=== PATIENT | female | born 1935 | race Two or more races ===

== ENCOUNTER 2020-05-19 14:13 | Outpatient (CLI) | payer OTHER, SELFPAY ==
--- NOTE | ~2020-05-19 | DEXA_ITS ---
Bone Density Report Name: Ousmane Dodd Age: 84 Sex: Female Ethnicity: Date of : 1935 Indication: postmenopausal osteoporosis; height loss; Referring Provider: FRANCO HOUSTON Study: Bone densitometry was performed. Exam Date: May 19, 2020 Accession number: [id number] Bone Density: Region BMD T-score Z-score Classification AP Spine (L1-L4) 0.509 -4.9 -2.1 Osteoporosis Femoral Neck (Left) 0.530 -2.9 -0.4 Osteoporosis Total Hip (Left) 0.673 -2.2 0.0 Osteopenia Total Hip Bilateral Avg 0.658 -2.4 -0.1 Osteopenia Femoral Neck (Right) 0.514 -3.0 -0.6 Osteoporosis Total Hip (Right) 0.643 -2.5 -0.2 Osteoporosis World Health Organization criteria for BMD impression classify patients as: Normal (T-score at or above -1.0), Osteopenia (T-score between -1.0 and -2.5), or Osteoporosis (T-score at or below -2.5). 10-year Fracture Risk: FRAX not reported because: Some T-score for Spine Total or Hip Total or Femoral Neck at or below -2.5 Previous Exams: Region Exam Age BMD T-score BMD Change BMD Change Date g/cm2 vs Baseline vs Previous AP Spine(L1-L4) 05/19/2020 84 0.509 -4.9 -0.065(-11.3%) -0.065(-11.3%) 01/15/2014 78 0.574 -4.3 Total Hip(Left) 05/19/2020 84 0.673 -2.2 -0.052(-7.2%)* -0.052(-7.2%)* 01/15/2014 78 0.725 -1.8 Total Hip(Right) 05/19/2020 84 0.643 -2.5 -0.116(-15.3%) -0.116(-15.3%) 01/15/2014 78 0.759 -1.5 *Denotes significance at 95% confidence level, LSC for AP Spine = 0.022 g/cm2, LSC for Total Hip = 0.027 g/cm2 Clinical Information Provided by Patient: Patient maximum height was 63 No regular weight bearing exercise Drinks caffeinated beverages Onset of menses at age 14 Number of children 6 Impression: The patient has osteoporosis, based on the Total Spine T-score. The BMD for the Total Hip(Left) decreased, changing by -7.2% since the last DXA exam. The BMD for the Total Hip(Right) decreased, changing by -15.3% since the last DXA exam. Discussion: HIGH RISK OF FRACTURE. BONE DENSITY IS UNDESIRABLY LOW AT ONE OR MORE SKELETAL SITES, CONSISTENT WITH OSTEOPOROSIS. ALSO, BONE DENSITY IS LOWER THAN EXPECTED FOR AGE AND SEX AT ONE OR MORE SKELETAL SITES; RECOMMEND A DILIGENT SEARCH FOR SECONDARY CAUSES OF BONE LOSS. This patient's lowest T-score meets the World Health Organization's (WHO) criteria for osteoporosis at one or more sites (T-score -2.5 or below). In untreated patients, the risk of osteoporotic fracture incre
--- NOTE | ~2020-05-19 | XR_ITS ---
XR chest 2V 05/19/2020 15:00 Indication: Hypertension. Dementia. Procedure: 2 view chest Comparison: 06/20/2017 Findings: Heart size normal. There is right apical parenchymal scarring unchanged. There are new nodu lar densities left midlung. No focal pneumonia, edema, pleural effusion or pneumothorax. Stable cardi omediastinal silhouette. Impression: 1: No acute cardiopulmonary disease. 2: New nodular densities left mid thorax. Follow-up CT chest recommended. Reviewed, dictated and finalized at location A. Impression: 1: No acute cardiopulmonary disease. 2: New nodular densities left mid thorax. Follow-up CT chest recommended.
[2020-05-19 15:44] LABS: Hematocrit 33.4 % (37.0-47.0); Hemoglobin 10.9 g/dL (12.0-15.0); Mean Corpuscular HGB Conc 32.6 g/dl (32-36); Mean Corpuscular Hemoglobin 28.5 pg (26-34); Mean Corpuscular Volume 87.4 fl (80-100); Mean Platelet Volume 10.2 fl (7.4-10.4); Platelet Count Result 299 k/mm3 (150-375); Red Blood Count 3.82 M/mm3 (4.2-5.4); Red Cell Distribution Width 12.4 % (11.5-14.5)
[2020-05-19 16:01] LABS: Alanine Aminotransferase 19 U/L (4-35); Albumin Level 3.9 g/dL (3.5-5.1); Alkaline Phosphatase 65 U/L (38-126); Aspartate Amino Transferase 34 U/L (14-36); Bilirubin,Total 0.5 mg/dL (0.2-1.3); Blood Urea Nitrogen 18 mg/dL (7-17); Calcium 9.5 mg/dL (8.4-10.2); Carbon Dioxide 32 mmol/L (22-30); Chloride 101 mmol/L (98-107); Estimated Glomerular Filt Rate > 60; Glucose 99 mg/dL (65-105); Sodium 138 mmol/L (137-145)
[2020-05-22 07:59] LABS: Methylmalonic Acid 1510 nmol/L (87-318)
== END 2020-05-19 14:14 | disposition home or self-care (01) ==
LOC: ANHIMG 14:22
PROVIDERS: PCP Internal Medicine; Visit Provider Internal Medicine
DX: F03.90 Unspecified dementia, unspecified severity, without behavioral disturbance, psychotic disturbance, mood disturbance, and anxiety (principal); Z78.0 Asymptomatic menopausal state; R91.8 Other nonspecific abnormal finding of lung field; M85.89 Other specified disorders of bone density and structure, multiple sites; M81.0 Age-related osteoporosis without current pathological fracture
CPT/HCPCS: 36415; 71046; 77080; 80053; 82607; 83921; 85027

== ENCOUNTER 2020-06-11 13:00 | Outpatient (CLI) | payer OTHER, SELFPAY ==
--- NOTE | ~2020-06-11 | CT_ITS ---
EXAMINATION: CT brain wo con EXAM DATE: 06/11/2020 13:49 INDICATION: Dementia. TECHNIQUE: Spiral CT of the head was performed without contrast. Axial, coronal and sagittal images were reviewed. The dose-length product (DLP) for this examination was 605.33 mGy-cm. The exposure w as tailored according to patient size, and iterative reconstruction (ASIR) was used as additional dos e reduction technique. Comparison is made to prior examination from 02/04/2014. FINDINGS: There is no acute intraparenchymal hemorrhage. No evidence of intraparenchymal brain mass lesion. No evidence of acute infarction. Please note that initial head CT has limited sensitivity f or small or acute infarctions. There is moderate periventricular and subcortical hypodensity, nonspec ific but probably related to small vessel ischemic disease. There is moderate prominence of the sul ci and ventricles related to cerebral atrophy. There is intracranial carotid arteriosclerosis. The re are no extra-axial collections. There is no mass effect or midline shift. Patient has had bilate ral ocular lens surgery. Vertebral basilar ectasia. Soft tissue is unremarkable. The visualized sinu ses and mastoid air cells are well aerated. IMPRESSION: 1. No acute intracranial findings. 2. Chronic age related findings. Reviewed, dictated and finalized at location B.
== END 2020-06-11 13:01 | disposition home or self-care (01) ==
LOC: ANHIMG 13:04
PROVIDERS: PCP Internal Medicine; Visit Provider Internal Medicine
DX: Z78.0 Asymptomatic menopausal state (principal); F03.90 Unspecified dementia, unspecified severity, without behavioral disturbance, psychotic disturbance, mood disturbance, and anxiety
CPT/HCPCS: 70450

== ENCOUNTER 2021-06-12 12:39 | Emergency (ER) | payer OTHER, SELFPAY ==
[2021-06-12] VITALS (13 sets, daily range): BP systolic 126–180; BP diastolic 77–106; PULSE 68–77; RESP 15–22; O2SAT 95–99
--- NOTE | ~2021-06-12 | XR_ITS ---
XR chest 2V DATE: 06/12/2021 13:00 INDICATION: Dyspnea. Shortness of breath. TECHNIQUE: PA and lateral views COMPARISON: 05/19/2020 2 view chest FINDINGS: Bilateral hyperinflation. No pulmonary infiltrate or consolidation, pleural effusion or pul monary vascular congestion or pneumothorax. Mild stable opacity overlying right apical area and 2019. Cardiomegaly. There is aortic calcification, ectasia and unfolding. No hilar or mediastinal enlargeme nt. Diffuse osteopenia. IMPRESSION: Cardiomegaly, aortic atherosclerosis Bilateral hyperinflation; no active pulmonary disease Reviewed, dictated and finalized at location A.
--- NOTE | ~2021-06-12 | CT_ITS ---
EXAMINATION: CTA chest PE protocol DATE: 06/12/2021 16:17 INDICATION: Shortness of breath. TECHNIQUE: Computed tomography angiography (CTA) of the chest was performed with 100 mL Omnipaque-350 intravenous contrast timed to evaluate the pulmonary arteries. Coronal maximum intensity projection 3D-reconstructions were created by the technologist. Automated exposure control and iterative reconst ruction technique were employed. The dose-length product was 154.02 mGy-cm. COMPARISON: Chest CT 12/01/2015 FINDINGS: There is a 2.1 x 1.3 cm part solid nodule in right lung upper lobe with 8 mm solid componen t, stable from 11/30/2015, likely benign. There is mild emphysema. There is mild atelectasis bilaterall y. There is a cluster of nodules in superior segment left lower lobe with the largest nodule measurin g 7 mm. No pleural effusion. The heart size is normal. No pericardial effusion. There is no pulmonary embolus. There is a moderate-sized sliding hiatal hernia. There is a healing fracture of right seven th rib. There is mild chronic height loss of multiple thoracic vertebral bodies. There is severe thor acic spondylosis. IMPRESSION: 1. No pulmonary embolus. 2. Cluster of nodules in superior segment left lower lobe, probably benign infection. Noncontrast low -dose chest CT is recommended in 6 months. 3. Mild emphysema. 4. Moderate-sized sliding hiatal hernia. Reviewed, dictated and finalized at location A. IMPRESSION: 1. No pulmonary embolus. 2. Cluster of nodules in superior segment left lower lobe, probably benign infe ction. Noncontrast low-dose chest CT is recommended in 6 months. 3. Mild emphysema. 4. Moderate-sized sliding hiatal hernia.
--- NOTE | 2021-06-12 12:40 | ECG_ITS ---
Measurements Intervals [place] Rate: 78 P: 55 [place]: 192 QRS: -74 QRSD: 154 T: 63 QT: 409 QTc: 468 Interpretive Statements SINUS RHYTHM POSSIBLE LEFT ATRIAL ENLARGEMENT LEFT BUNDLE BRANCH BLOCK BASELINE ARTIFACT- I, II, AVR, AVL, AVF, V1-V2 ABNORMAL ECG Electronically Signed On 06-12-2021 13:23:05 CDT by Elder Hoffman D.O.
[2021-06-12 13:15] LABS: Basophils Absolute Auto 0.1 K/mm3 (0.0-0.1); Basophils Percent Auto 0.9 % (0.2-1.2); Eosinophils Absolute Auto 0.1 K/mm3 (0-0.3); Eosinophils Percent Auto 1.8 % (0-4.4); Hematocrit 38.9 % (37.0-47.0); Hemoglobin 12.4 g/dL (12.0-15.0); Immature Granulocyte Absolute 0.01 K/mm3 (0.00-0.031); Immature Granulocyte Percent A 0.2 % (0-0.5); Lymphocytes Absolute Auto 0.61 K/mm3 (0.9-3.2); Lymphocytes Percent Auto 11.2 % (18.3-44.2); Mean Corpuscular HGB Conc 31.9 g/dl (32-36); Mean Corpuscular Hemoglobin 28.2 pg (26-34); Mean Corpuscular Volume 88.6 fl (80-100); Mean Platelet Volume 9.6 fl (7.4-10.4); Monocytes Absolute Auto 0.8 K/mm3 (0.1-0.6); Monocytes Percent Auto 14.5 % (2.6-8.5); Neutrophils Absolute Auto 3.9 K/mm3 (1.3-6.7); Neutrophils Percent Auto 71.4 % (45.5-73.1); Platelet Count Result 344 k/mm3 (150-375); Red Blood Count 4.39 M/mm3 (4.2-5.4); White Blood Count 5.5 K/mm3 (4.5-10.0)
[2021-06-12 13:22] LABS: Anion Gap 6 mmol/L (8-16); Blood Urea Nitrogen 17 mg/dL (7-17); Calcium 9.8 mg/dL (8.4-10.2); Carbon Dioxide 31 mmol/L (22-30); Chloride 93 mmol/L (98-107); Estimated CRCL calculation 37 ml/min; Estimated Glomerular Filt Rate > 60; Glucose 147 mg/dL (65-110); Potassium 3.7 mmol/L (3.4-5.0); Sodium 130 mmol/L (137-145)
--- NOTE | 2021-06-12 14:54 | ED.SOB ---
HPI - SOB/Dyspnea General Chief Complaint: Shortness of Breath/Dyspnea Stated Complaint: difficulty breathing Time Seen by Provider: 06/12/21 14:32 Source: patient, family and RN notes reviewed Mode of arrival: ambulatory Limitations: no limitations History of Present Illness HPI Narrative: This is an 85 year old female with history of hypertension who presents for evaluation of shortness of breath. Patient has been feeling short of breath since . She is only able to walk a short distance before she gets winded. Patient denies any other complaints. Patient denies chest pain, cough, abdominal pain, back pain, leg swelling, wheezing or fever. Her daughter states patient does not want to be admitted to hospital and she has never had to be admitted before. Related Data Home Medications Medication Instructions Recorded Confirmed carvedilol 12.5 mg PO DAILY 06/12/21 06/12/21 cyanocobalamin (vitamin B-12) 1,000 mcg PO DAILY 06/12/21 06/12/21 losartan-hydrochlorothiazide 1 tablet PO DAILY 06/12/21 06/12/21 Allergies Allergy/AdvReac Type Severity Reaction Status Date / Time No Known Allergies Allergy Unverified 06/12/21 14:00 Review of Systems Review of Systems: All systems reviewed & are unremarkable except as noted in HPI and below PMFSH Past Medical History Medical History (Updated 06/12/21 @ 17:44 by Kanika Martinez MD) Hypertension Social History Social History (Updated 06/12/21 @ 15:06 by Kanika Martinez MD) Smoking status: Never smoker Gender identity (if verbalized by the patient): Female Exam Const: General: alert Nutritional Appearance: thin Orientation/consciousness: patient oriented x3 Eyes: EOM: EOMs intact bilaterally Chest: Chest palpation & inspection: normal inspection of the chest Resp: Effort & Inspection: normal respiratory effort and no retractions Auscultation: clear to auscultation bilaterally Cardio: Rate: regular rate Rhythm: regular rhythm Heart sounds: no murmurs GI: GI Palp: Yes Soft to palpation, No Tenderness to palpation present (GI) and No Guarding due to palpation present (GI) Auscultation: normal bowel sounds Skin: General skin exam: normal color Neuro: General: patient oriented x3, moves all extremities and CN's II-XI intact bilaterally Extrem: General: normal to inspection and no pedal edema Psych: Mental Status: mental status grossly normal Affect: normal affect Course Reevaluation(s) Reevaluation #1: I spoke with patient and daugther. No acute findings for dyspnea. PAtient does not want to stay . I discussed with daughter that patient's sodium is low due to her taking hydrochlorothiazide. Date: 06/12/21 Time: 17:27 Vital Signs Vital signs: Vital Signs Pulse Rate 74 06/12/21 13:57 Respiratory Rate 19 06/12/21 13:57 Blood Pressure 161/96 H 06/12/21 13:57 Pulse Oximetry 97 06/12/21 13:57 Pulse Rate 77 06/12/21 18:25 Respiratory Rate 22 H 06/12/21 18:25 Blood Pressure 160/97 H 06/12/21 18:25 Pulse Oximetry 99 06/12/21 18:25 MDM - SOB/Dyspnea Lab Data Attestation: I reviewed the patient's lab results. Result diagrams: 06/12/21 12:54 06/12/21 12:54 Labs: Lab Results 06/12/21 06/12/21 06/12/21 Range/Units 12:53 12:53 12:54 WBC 5.5 (4.5-10.0) K/mm3 RBC 4.39 (4.2-5.4) M/mm3 Hgb 12.4 (12.0-15.0) g/dL Hct 38.9 (37.0-47.0) % MCV 88.6 (80-100) fl MCH 28.2 (26-34) pg MCHC 31.9 L (32-36) g/dl RDW 12.0 (11.5-14.5) % Plt Count 344 (150-375) k/mm3 MPV 9.6 (7.4-10.4) fl Immature Gran % (Auto) 0.2 (0-0.5) % Neut % (Auto) 71.4 (45.5-73.1) % Lymph % (Auto) 11.2 L (18.3-44.2) % [place] % (Auto) 14.5 H (2.6-8.5) % Eos % (Auto) 1.8 (0-4.4) % Baso % (Auto) 0.9 (0.2-1.2) % Lymph # (Auto) 0.61 L (0.9-3.2) K/mm3 [place] # (Auto) 0.8 H (0.1-0.6) K/mm3 Eos # (Auto) 0.1 (0-0.3) K/mm3 Baso # (Auto
[2021-06-12 15:23] LABS: Prothrombin Time 12.7 Seconds (11.1-14.7)
[2021-06-12 15:26] LABS: D Dimer 0.68 ug/mL (<0.48)
[2021-06-12 15:31] LABS: NT Pro B Type Natriuretic Pept 403 pg/mL (5-100); Troponin I < 0.012 ng/mL (0.000-0.034)
[2021-06-12] MEDS: SODIUM CHLORIDE 0.9% IV 500 ML 999 ML IV CONT (17:05)
== END 2021-06-12 18:42 | disposition home or self-care (01) ==
PROVIDERS: Emergency Medicine; Emergency Provider General Practice; PCP Internal Medicine
DX: R06.00 Dyspnea, unspecified (principal); E87.1 Hypo-osmolality and hyponatremia; I10 Essential (primary) hypertension
CPT/HCPCS: 36415; 71046; 71275; 80048; 83880; 84484; 85025; 85380; 85610; 85730; 93005; 96360; 99284; J7040; Q9967

== ENCOUNTER 2022-05-05 16:01 | Emergency (ER) | payer OTHER, SELFPAY ==
--- NOTE | ~2022-05-05 | XR_ITS ---
XR hip RT min 2V 05/05/2022 17:55 Indication: Right hip pain Procedure: 2 views right hip Comparison: No prior studies for comparison. Findings: Mild osteoarthritis of the right hip. Osteopenia. There is mild osteitis pubis. No acute fr acture or traumatic malalignment. Sacral foramen are symmetric. Impression: 1: No acute fracture. Reviewed, dictated and finalized at location A. Impression: 1: No acute fracture.
[2022-05-05 16:29] VITALS: BP 133/86; PULSE 79; RESP 16; TEMP 36.2; O2SAT 100
--- NOTE | 2022-05-05 17:13 | ED.BACK ---
HPI - Back Pain/Injury General Chief Complaint: Back Pain/Injury <YOAV Valladares Last Filed: 05/05/22 21:09> Stated Complaint: right leg pain <YOAV Valladares Last Filed: 05/05/22 21:09> Time Seen by Provider: 05/05/22 17:02 <Marielle Caputo PA-C - Last Filed: 05/05/22 21:09> History of Present Illness HPI Narrative: Patient is an 86-year-old female here with her daughter who serves as the supervisory cbp officer for evaluation of atraumatic right hip pain for the past 2 days. Patient states that the pain has developed gradually, she was walking yesterday, but now states it is difficult to walk today, which prompted her ED evaluation. She states the pain remains in her right glute/hip area and does not radiate. She has tried ibuprofen without much relief. Denies any urinary symptoms, retention of bowel or bladder, saddle anesthesia, paresthesias down her leg, IVDU, fevers, weight loss. <YOAV Valladares Last Filed: 05/05/22 21:09> Related Data Home Medications: Home Medications Medication Instructions Recorded Confirmed carvedilol 12.5 mg tablet 12.5 mg PO DAILY 06/12/21 06/12/21 cyanocobalamin (vitamin B-12) 1,000 mcg PO DAILY 06/12/21 06/12/21 1,000 mcg tablet losartan 50 mg-hydrochlorothiazide 1 tablet PO DAILY 06/12/21 06/12/21 12.5 mg tablet <YOAV Valladares Last Filed: 05/05/22 21:09> Allergies/Adverse Reactions: Allergies Allergy/AdvReac Type Severity Reaction Status Date / Time No Known Allergies Allergy Verified 05/05/22 17:29 <YOAV Valladares Last Filed: 05/05/22 21:09> Review of Systems Review of Systems: Gen: Denies fevers or chills Eyes: Denies eye pain or visual change ENT: Denies congestion Respiratory: Denies shortness of breath or cough CV: Denies chest pain or palpitations GI: Denies abdominal pain nausea, emesis or diarrhea : denies burning, urgency, frequency or hematuria Musculoskeletal: Reports right hip pain. Neuro: Denies numbness, tingling, weakness or focal weakness Skin: Denies rash Except as documented, all other systems reviewed and negative <Marielle Caputo PA-C - Last Filed: 05/05/22 21:09> [facility] Past Medical History Medical History: Medical History Hypertension <Marielle Caputo PA-C - Last Filed: 05/05/22 21:09> Social History Social History: Social History (Updated 06/12/21 @ 15:06 by Kanika Martinez MD) Smoking status: Never smoker Gender identity (if verbalized by the patient): Female <Marielle Caputo PA-C - Last Filed: 05/05/22 21:09> Exam Narrative: Gen: Thin, alert, oriented, no acute distress Eyes: EOMI, no icterus Pulm: Respirations even and unlabored, symmetric thorax expansion, no audible stridor or visible cyanosis CV: 2+ DP and PT pulses bilaterally. GI: No distension, no voluntary/involuntary guarding Neuro: AOx4, moves all extremities without apparent difficulty or weakness, follows commands MSK: No bony tenderness to palpation along C, T, or L-spine. No bony tenderness along hip bone or pelvis. Straight leg raise negative bilaterally. Full range of motion in bilateral hips without pain. Skin: No jaundice, no visible bruising, rashes, lesions or wounds on exposed skin Psych: Normal mood/affect, insight/judgement good, adequate fund of knowledge, recent/remote memory intact <Marielle Caputo PA-C - Last Filed: 05/05/22 21:09> Course HARVEST CREW SUPERVISOR/PA Physician Supervision I saw and evaluated the patient. Discussed the patient and plan with AMIRAH Caputo and agree with the findings and plan as documented. <Robin Silva MD - Last Filed: 05/06/22 23:58> Vital Signs Vital signs: Vital Signs Temperature 97.2 F L 05/05/22 16:29 Pulse Rate 79 05/05/22 16:29 Respiratory Rate 16 05/05/22 16:29 Blood Pressure 133/86 05/05/22 1
[2022-05-05] MEDS: LIDOCAINE 5% PATCH 1 PATCH TRANSDERM (17:28)
[2022-05-05] MEDS: ACETAMINOPHEN 325 MG TABLET 650 MG PO (17:28)
== END 2022-05-05 19:00 | disposition home or self-care (01) ==
PROVIDERS: Emergency Provider Preventive Medicine Aerospace Medicine; PCP Internal Medicine
DX: M25.551 Pain in right hip (principal); I10 Essential (primary) hypertension
CPT/HCPCS: 73502; 99283; A9270

== ENCOUNTER 2022-10-25 14:30 | Emergency (ER) | payer OTHER, SELFPAY ==
[2022-10-25] VITALS (20 sets, daily range): BP systolic 139–188; BP diastolic 58–101; PULSE 70–85; RESP 14–22; TEMP 36.4; O2SAT 93–100
--- NOTE | ~2022-10-25 | CT_ITS ---
EXAMINATION: CTA chest PE protocol DATE: 10/25/2022 19:50 INDICATION: dyspnea TECHNIQUE: Computed tomography angiography (CTA) of the chest was performed with 100 mL Omnipaque-350 intravenous contrast timed to evaluate the pulmonary arteries. Coronal maximum intensity projection 3D-reconstructions were created by the technologist. The dose-length product (DLP) was 127.91 mGy-cm. Automated exposure control and iterative reconstruction technique were employed. COMPARISON: 06/12/2021. FINDINGS: Lung parenchyma and airways: Grossly unchanged 1.4 cm subsolid left upper lobe nodule, demonstrating long-term stability. 1.3 cm old left lower lobe cavitary lesion, slightly increased in size. Associat ed lobular soft tissue component has significantly increased now measuring 0.7 x 2.1 cm. Stable perip heral right lower lobe scar. Emphysematous change. Pleura: Small right pleural effusion. Thoracic inlet, axillae and chest wall: Unremarkable. Thoracic aorta: Ascending aortic ectasia. Moderate arch calcification. Mediastinum: Large hiatal hernia. Dilated central pulmonary arteries as can be seen with pulmonary ar terial hypertension. Heart and pericardium: Aortic valve and mitral calcification. Cardiomegaly.. Coronary artery calcifications: Absent. Upper abdomen: No significant finding. Bones: No acute osseous finding. Pulmonary arteries: Study quality: Adequate. No pulmonary emboli detected. IMPRESSION: No CT evidence of acute pulmonary embolus. Solid and cavitary mass in the superior segment, left lowe r lobe, demonstrating interval growth, which may represent chronic infectious or malignant etiology. Consider referral for PET/CT or biopsy for further evaluation. Reviewed, dictated and finalized at location K. ORMANCE IMPROVEMENT MANAGER IMPRESSION: No CT evidence of acute pulmonary embolus. Solid and cavitary mass in the super ior segment, left lower lobe, demonstrating interval growth, which may represen t chronic infectious or malignant etiology. Consider referral for PET/CT or bio psy for further evaluation.
--- NOTE | ~2022-10-25 | XR_ITS ---
XR chest 2V DATE: 10/25/2022 15:41 INDICATION: Shortness of breath TECHNIQUE: PA and lateral views COMPARISON: 06/12/2021 CT pulmonary scan FINDINGS: Approximately 11 mm cavity is suggested in the lateral left mid to upper lung. Mild scarrin g in the right apical area. No pulmonary infiltrate or consolidation, pleural effusion or pulmonary vascular congestion or pneumo thorax is detected. Cardiomegaly. Moderately large hiatal hernia. Aortic calcification, ectasia and tortuosity. Diffuse osteopenia. Levoscoliosis of the thoracic spine. IMPRESSION: Cardiomegaly Aortic atherosclerosis 11 mm cavity, left upper lobe Mild right apical scarring Moderately large hiatal hernia Reviewed, dictated and finalized at location B. ARY HELPER
--- NOTE | 2022-10-25 14:56 | ED.SOB ---
HPI - SOB/Dyspnea General Chief Complaint: Shortness of Breath/Dyspnea Stated Complaint: HTN/dyspnea Time Seen by Provider: 10/25/22 14:56 Source: patient and family Mode of arrival: ambulatory Limitations: no limitations History of Present Illness HPI Narrative: Pulmonary patient is an 86-year-old female with a history of hypertension presenting to the emergency department for evaluation of shortness of breath with exertion. Patient's family helps to provide much of the history. I spoke personally with the patient's daughter with whom she lives. States that patient has had increasing shortness of breath with exertion and activities of daily living such as walking around the house. Patient denies associated chest pain, cough, pleuritic pain. No lower extremity swelling or calf pain. Patient's family states that this has been ongoing over the past month. Patient denies any wheezing or history of asthma. Patient's daughter states that in the past she has used an asthma inhaler with some improvement in her symptoms but the albuterol inhaler has not improved at this point. Patient's family also states that her blood pressure has been elevated despite compliance with her medications. No recent medication changes. No recent long car or air travel over the holidays. Patient denies headache or vision changes. No lightheadedness or dizziness. Related Data Home Medications Medication Instructions Recorded Confirmed carvedilol 12.5 mg tablet 12.5 mg PO DAILY 06/12/21 06/12/21 cyanocobalamin (vitamin B-12) 1,000 mcg PO DAILY 06/12/21 06/12/21 1,000 mcg tablet losartan 50 mg-hydrochlorothiazide 1 tablet PO DAILY 06/12/21 06/12/21 12.5 mg tablet Allergies Allergy/AdvReac Type Severity Reaction Status Date / Time No Known Allergies Allergy Verified 05/05/22 17:29 Review of Systems Review of Systems: CONSTITUTIONAL: Denies fever, chills, or sweats. EYES: Denies visual changes, redness, or discharge. ENT: Denies rhinorrhea, congestion, sore throat, or otalgia. CARDIOVASCULAR: Denies chest pain, palpitations, or edema. RESPIRATORY: Denies cough, reports dyspnea with exertion GASTROINTESTINAL: Denies abdominal pain, nausea, vomiting, or diarrhea. GENITOURINARY: Denies dysuria or hematuria. SKIN: Denies rash or itching. MUSCULOSKELETAL: Denies back pain, joint pain, or myalgia. NEUROLOGIC: Denies headache, numbness, or weakness. [facility] Past Medical History Medical History Hypertension Social History Social History Smoking status: Never smoker Gender identity (if verbalized by the patient): Female Exam Narrative: GENERAL: Awake, alert, conversant HEAD: Normocephalic, atraumatic. EYES: PERRLA and EOMI. ENT: Nares clear, no rhinorrhea or epistaxis. Mucous membranes moist. NECK: Supple. CHEST: No respiratory distress, breathing even and non labored HEART: Regular rate, sinus rhythm ABDOMEN:Non distended, non tender EXTREMITIES: Normal range of motion. No edema. No calf tenderness, erythema bilaterally. SKIN: Warm, dry, no rash. NEURO:No focal deficits. Alert and oriented x3 Course Vital Signs Vital signs: Vital Signs Temperature 36.4 C 10/25/22 14:57 Pulse Rate 72 10/25/22 14:57 Respiratory Rate 22 H 10/25/22 14:57 Blood Pressure 164/58 H 10/25/22 14:57 Pulse Oximetry 93 10/25/22 14:57 Temperature 36.4 C L 10/25/22 15:18 Pulse Rate 75 10/25/22 19:31 Respiratory Rate 18 10/25/22 19:31 Blood Pressure 188/93 H 10/25/22 19:31 Pulse Oximetry 100 10/25/22 19:31 MDM - SOB/Dyspnea MDM Narrative Medical decision making narrative: Patient presenting for evaluation of shortness of breath with exertional activity. At the time of assessment, patient is well-appearing and lung sounds are clear bilaterally. Vital signs are stable. Differential includes infection vers
--- NOTE | 2022-10-25 15:13 | ECG_ITS ---
Measurements Intervals [place] Rate: 75 P: 54 [place]: 172 QRS: -35 QRSD: 146 T: 79 QT: 422 QTc: 473 Interpretive Statements SINUS RHYTHM LEFT AXIS DEVIATION LEFT BUNDLE BRANCH BLOCK BASELINE ARTIFACT- I, III, AVR, AVL, V1 ABNORMAL ECG COMPARED TO ECG 06/12/2021 12:49:48 NO SIGNIFICANT CHANGES Electronically Signed On 10-25-2022 20:40:42 LPN by Elder Hoffman D.O.
[2022-10-25 15:42] LABS: Basophils Percent Auto 0.8 % (0.2-1.2); Eosinophils Absolute Auto 0.1 K/mm3 (0-0.3); Eosinophils Percent Auto 1.6 % (0-4.4); Hematocrit 36.5 % (37.0-47.0); Hemoglobin 11.9 g/dL (12.0-15.0); Immature Granulocyte Absolute 0.01 K/mm3 (0.00-0.031); Immature Granulocyte Percent A 0.2 % (0-0.5); Lymphocytes Absolute Auto 0.56 K/mm3 (0.9-3.2); Lymphocytes Percent Auto 11.3 % (18.3-44.2); Mean Corpuscular HGB Conc 32.6 g/dl (32-36); Mean Corpuscular Hemoglobin 27.9 pg (26-34); Mean Corpuscular Volume 85.7 fl (80-100); Mean Platelet Volume 9.6 fl (7.4-10.4); Monocytes Absolute Auto 0.7 K/mm3 (0.1-0.6); Monocytes Percent Auto 13.9 % (2.6-8.5); Neutrophils Absolute Auto 3.6 K/mm3 (1.3-6.7); Neutrophils Percent Auto 72.2 % (45.5-73.1); Platelet Count Result 354 k/mm3 (150-375); Red Blood Count 4.26 M/mm3 (4.2-5.4); Red Cell Distribution Width 11.9 % (11.5-14.5)
[2022-10-25 15:49] LABS: INR 1.1; Prothrombin Time 13.7 Seconds (11.1-14.7)
[2022-10-25 15:58] LABS: Alanine Aminotransferase 18 U/L (6-35); Albumin Level 3.9 g/dL (3.5-5.1); Alkaline Phosphatase 82 U/L (38-126); Anion Gap 4 mmol/L (8-16); Aspartate Amino Transferase 29 U/L (14-36); Bilirubin,Total 0.3 mg/dL (0.2-1.3); Blood Urea Nitrogen 19 mg/dL (7-17); Calcium 9.4 mg/dL (8.4-10.2); Carbon Dioxide 34 mmol/L (22-30); Chloride 92 mmol/L (98-107); Estimated Glomerular Filt Rate > 60; Glucose 124 mg/dL (65-110); Potassium 3.5 mmol/L (3.4-5.0); Sodium 130 mmol/L (137-145)
[2022-10-25 16:07] LABS: Troponin I < 0.012 ng/mL (0.000-0.034)
--- NOTE | 2022-10-25 18:59 | PC.NURSE ---
Patient ambulated with walking pulse ox and saturation levels stayed between 96-97
[2022-10-25 19:18] LABS: NT Pro B Type Natriuretic Pept 571 pg/mL (5-100)
[2022-10-25 19:42] LABS: D Dimer 1.61 ug/mL (<0.48)
== END 2022-10-25 21:50 | disposition home or self-care (01) ==
PROVIDERS: Emergency Medicine; Emergency Provider Emergency Medicine; PCP Internal Medicine
DX: R06.00 Dyspnea, unspecified (principal); I10 Essential (primary) hypertension; R91.8 Other nonspecific abnormal finding of lung field; I44.7 Left bundle-branch block, unspecified; R94.31 Abnormal electrocardiogram [ECG] [EKG]
CPT/HCPCS: 36415; 71046; 71275; 80053; 83880; 84484; 85025; 85380; 85610; 85730; 93005; 99284; J1100; J2405; J2704; Q9967

== ENCOUNTER 2022-11-08 08:14 | Outpatient (CLI) | payer OTHER, SELFPAY ==
--- NOTE | 2022-11-06 09:56 | PC.NURSE ---
Pre Radiology instructions Report to the outpatient [facility] on date _11/08/22 @ 0900_ Procedure Time: _1100_ YOU MAY BE MONITORED AT HOSPITAL FOR UP TO 4 HOURS AFTER YOUR PROCEDURE. A visitors will be allowed to accompany the patient into the hospital. ?The visitor will be instructed to remain with patient at all times or leave the building due to restrictions.? We will allow the visitor to come back to the postoperative area when patient is ready.? NO children visitors allowed at this time. You and your visitor will be asked to self-screen and do not enter if you have any COVID symptoms. A mask is OPTIONAL within the hospital. Patients are to have no food or drink 6 hours prior to procedure time (0500 AM) Driving will be restricted after the procedure, you must have a person to drive you home. Labs will be drawn in preop area and once reviewed, you will be taken to radiology area for procedure. When the procedure is completed, you will be taken to outpatient where you will be monitored for several hours. You may have one visitor in this area. Other than holding anti-coagulants, patient may take other medication(s) as scheduled. Prior to your appointment date patients are instructed to hold anti-coagulants after discussing with ordering provider to stop. If unable to discontinue anti-coagulants please notify radiologist. ? No aspirin or warfarin (Coumadin) for 7 days prior to the procedure. ? No clopidogrel (Plavix), ticagrelor (Brilinta), prasugrel (Effient) or dabigatran (Pradaxa) for 5 days prior to the procedure. ? No rivaroxaban (Xarelto), apixaban (Eliquis), dipyridamole (Aggrenox or Persantine) or cilostazol (Pletal) for 2 days prior to the procedure. Medications to discontinue per physician: ___N/A Date to take last dose: Please leave all valuables, including medications, at home the day of procedure. The hospital will not accept responsibility for valuables. Wear comfortable, loose fitting clothing.? Follow any additional instructions given to you from ordering provider. Telephone instructions given to _PT'S [id number]__[id number] asked if any additional questions and then verbalized understanding. Patient advised to call scheduling provider office or registration scheduling [phone] if any additional questions.
[2022-11-06 09:58] VITALS: BMI 18.3
[2022-11-08 08:30] VITALS: PULSE 71; O2SAT 98
[2022-11-08 08:35] VITALS: PULSE 84; O2SAT 96
[2022-11-08 08:50] VITALS: PULSE 74; O2SAT 98
--- NOTE | 2022-11-08 08:58 | ECHO_ITS ---
Patient Info Name: Ousmane Dodd Age: 86 years : 1935 Gender: Female Ht: 59 in Wt: 97 lbs BSA: 1.35 m2 HR: 75 bpm BP: 167 / 76 mmHg Technical Quality: Good Exam Date: 11/08/2022 9:08 AM Exam Location: [facility] Patient Status: Outpatient Admit Date: 11/08/2022 Staff Ordering Physician: Daniel Gordillo MD Risk Management Manager: Charles Clifford RDCS, RT Attending Provider: Daniel Gordillo MD Referring Physician: Duy LOYD; Exam Type: CA echo doppler color flow Study Info Indications R06.00 - Dyspnea, unspecified Complete two-dimensional, color flow and Doppler transthoracic echocardiogram is performed. Strain analysis performed. Summary 1. Complete two-dimensional, color flow and Doppler transthoracic echocardiogram is performed. 2. Left ventricular chamber dimension is normal. 3. Left ventricular systolic function is normal, estimated at 55-60%. 4. There is mildly increased left ventricular wall thickness. 5. The left ventricular diastolic function is grade I diastolic dysfunction. 6. E/e' 10 is mildly elevated. 7. Global longitudinal strain is abnormal at -14.2%. 8. There is mild aortic valve sclerosis. 9. The mitral valve has moderately calcified annulus. 10. Dilated inferior vena cava with >50% collapse upon inspiration consistent with elevated right atrial pressure, 10 mmHg. Left Ventricle E/e' 10 is mildly elevated. Global longitudinal strain is abnormal at -14.2%. Left ventricular chamber dimension is normal. Left ventricular systolic function is normal, estimated at 55-60%. There is mildly increased left ventricular wall thickness. The left ventricular diastolic function is grade I diastolic dysfunction. Right Ventricle Right ventricular systolic function is normal and with normal TAPSE 2.1 cm. Right ventricular chamber dimension is normal. Left Atria Left atrial chamber dimension is normal. Right Atria Right atrial chamber dimension is normal. Aortic Valve The aortic valve is trileaflet. There is mild aortic valve sclerosis. There is no aortic valve stenosis. There is no aortic valve regurgitation. Pulmonic Valve There is no pulmonic regurgitation. Mitral Valve The mitral valve has moderately calcified annulus. There is no mitral valve stenosis. There is no mitral valve regurgitation. Tricuspid Valve There is no tricuspid valve regurgitation. Pericardium/Pleural There is no pericardial effusion. Inferior Vena Cava Dilated inferior vena cava with >50% collapse upon inspiration consistent with elevated right atrial pressure, 10 mmHg. Aorta The aortic root size at the sinus of Valsalva is normal. Left Ventricular Outflow Tract Name Value Normal LVOT 2D LVOT Diameter 1.9 cm LVOT Doppler LVOT Peak Gradient 5 mmHg LVOT Mean Gradient 3 mmHg LVOT VTI 23 cm LVOT VTI/AV VTI Ratio 0.8 LVOT Stroke Volume 61 ml LVOT CO 4.1 l/min LVOT CI
--- NOTE | 2022-11-08 09:30 | HOMEO2EVAL ---
Evaluation was performed at [facility] Home Oxygen Evaluation RC: Home Oxygen (O2) Evaluation Start: 11/08/22 09:28 Freq: Status: Active Protocol: RPE Activity Type Activity Date Activity User E-sign Co-sign Detail Recorded Client Recorded Date Recorded By Document 11/08/22 08:30 DJO [email or web address] 11/08/22 09:30 DJO Document 11/08/22 08:35 [email or web address] [email or web address] 11/08/22 09:30 DJO Document 11/08/22 08:50 [email or web address] [email or web address] 11/08/22 09:30 DJO 11/08/22 11/08/22 11/08/22 08:30 08:35 08:50 Home O2 Evaluation [Oxygen] -Test Phase Resting Exercise Exercise -Oxygen Delivery Room Air Room Air Room Air [Pulse Oximetry] -Pulse Oximetry (90-100 %) 98 96 98 [Pulse Rate] -Pulse Rate (60-100 beats/min) 71 84 74 [Evaluation] -Activity Tolerance Fair [Exercise] -Ambulation Distance (feet) 750 -Ambulation Distance (meters) 228.58 [Charges] -Treatment Charges O2 Evaluation - Outpatient
--- NOTE | 2022-11-08 09:31 | PCRCNOTE ---
PT CAME IN FOR PFT, PT UNABLE TO PERFORM. SHE DOES NOT SPEAK [place] AND WAS UNABLE TO FOLLOW DIRECTIONS USING DAUGHTER TO TRANSLATE. DR. MURRAY'S OFFICE NOTIFIED.
== END 2022-11-08 08:15 | disposition home or self-care (01) ==
LOC: ANHPFT 08:16
PROVIDERS: PCP Internal Medicine; Visit Provider Internal Medicine Pulmonary Disease
DX: R06.02 Shortness of breath (principal)
CPT/HCPCS: 93306; 94618

== ENCOUNTER 2022-12-13 05:09 | Observation (INO) | payer OTHER, SELFPAY ==
[2022-12-13] VITALS (15 sets, daily range): BP systolic 130–158; BP diastolic 88–98; PULSE 74–104; RESP 16–31; TEMP 36.5–36.9; O2SAT 94–100
--- NOTE | ~2022-12-13 | CT_ITS ---
Clinical Indication: Dyspnea CT Scan of the Chest with Contrast: Technique: Contiguous sections were acquired throughout the chest after intravenous administration of 100 cc of Omnipaque 350. Dose reduction technique was used on this scan by utilizing automated expos ure control and iterative reconstruction technique. The dose-length product (DLP) was 136.90 mGy-cm. COMPARISON: 10/25/2022 and 06/12/2021 Findings: There is no evidence of any significant mediastinal, hilar or axillary lymphadenopathy. There is no f illing defect in the pulmonary arterial tree to suggest pulmonary embolus. There is no evidence of ao rtic dissection or aneurysm. No pericardial effusion. There is a small right basilar pleural effusion, probably loculated laterally. No left pleural effusi on. There is an irregular, solid spiculated lesion in the right lung apex, measuring up to approximate 1. 7 cm in maximum diameter, probably increasing in size since 06/12/2021. Stable rounded right lower lob e pulmonary nodule, probably representing focal nodular scarring (axial image 48). Cavitary lesion wi th adjacent solid nodule in the left lower lobe are similar to most recent prior exam, with a solid c omponent increased since 06/12/2021. Images through the upper abdomen reveal small hiatal hernia. Impression: No pulmonary embolus. Small right pleural effusion, loculated laterally. Irregular spiculated lesion right lung apex, slowly increasing in size since 06/12/2021. Low-grade/ind olent malignancy is a consideration. Cavitary lesion with adjacent solid nodule left lower lobe. Solid component is also increased since . Again, slow growing/indolent malignancy is a consideration. Stable right lower lobe pulmonary nodule, as noted above. Reviewed, dictated and finalized at [facility]. AL PROGRAM DIRECTOR Impression: No pulmonary embolus. Small right pleural effusion, loculated laterally. Irregular spiculated lesion right lung apex, slowly increasing in size since . Low-grade/indolent malignancy is a consideration. Cavitary lesion with adjacent solid nodule left lower lobe. Solid component is also increased since 06/12/2021. Again, slow growing/indolent malignancy is a co nsideration. Stable right lower lobe pulmonary nodule, as noted above.
--- NOTE | ~2022-12-13 | US_ITS ---
EXAMINATION: US venous doppler [facility] DATE: 12/13/2022 18:02 INDICATION: Edema . TECHNIQUE: Grayscale images without and with compression and Doppler images of the bilateral lower ex tremity veins were obtained. COMPARISON: None FINDINGS: Acute-appearing thrombus in the right saphenous vein. Chronic changes in the right posterior tibial a nd peroneal veins. The right common femoral vein, profunda (deep) femoral vein, femoral vein, posteri or tibial veins, and greater saphenous vein are patent. Small Moy's cyst. Chronic changes in the left posterior tibial and peroneal veins The left common femoral vein, profund a femoral vein, femoral vein, popliteal vein, gastrocnemius vein, and greater saphenous vein are mitchell nt. Small Moy's cyst. IMPRESSION: 1. Acute venous thrombosis involving the right gastrocnemius vein. 2. 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 3. Visualized lower extremity veins otherwise patent. 4. Bilateral Moy's cysts. Results reported telephonically to Marcelle Foy RN by Dr. Arita at 8:30 PM on 12/13/2022. Reviewed, dictated and finalized at location [facility]. ORATE DEVELOPMENT MANAGER IMPRESSION: 1. Acute venous thrombosis involving the right gastrocnemius vein. 2. 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 3. Visualized lower extremity veins otherwise patent. 4. Bilateral Moy's cysts. Results reported telephonically to Marcelle Foy RN by Dr. Arita at 8:30 P M on 12/13/2022.
--- NOTE | ~2022-12-13 | XR_ITS ---
Clinical Indication: Shortness of breath PA and lateral views of the chest: Comparison: 10/25/2022 Findings: Suspected small loculated right basilar pleural effusion, versus less likely subpleural mas s. Thin-walled cavitary lesion in the left upper lobe is similar to prior exam. Possible COPD. Cardio mediastinal silhouette is within normal limits. Bones and soft tissues are unremarkable. Impression: Suspected small loculated right basilar pleural effusion versus subpleural mass. Stable thin-walled cavitary lesion left upper lobe. COPD. Reviewed, dictated and finalized at location . [facility] Impression: Suspected small loculated right basilar pleural effusion versus subpleural mass . Stable thin-walled cavitary lesion left upper lobe. COPD.
--- NOTE | 2022-12-13 05:25 | ECG_ITS ---
Measurements Intervals [place] Rate: 103 P: 58 MA: 216 QRS: -43 QRSD: 148 T: 69 QT: 371 QTc: 487 Interpretive Statements SINUS TACHYCARDIA WITH FIRST DEGREE AV BLOCK WITH OCCASIONAL SUPRAVENTRICULAR PREMATURE COMPLEXES POSSIBLE LEFT ATRIAL ENLARGEMENT [-0.1mV P WAVE IN V1/V2] MARKED LEFT AXIS DEVIATION [QRS AXIS < -30] LEFT BUNDLE BRANCH BLOCK [120+ ms QRS DURATION, 80+ ms Q/S IN V1/V2, 85+ ms R IN I/aVL/V5/V6] ABNORMAL ECG COMPARED TO ECG 10/25/2022 15:14:30 SINUS TACHYCARDIA NOW PRESENT FIRST DEGREE AV BLOCK NOW PRESENT Electronically Signed On 12-13-2022 13:41:12 OBSTETRICS GYNECOLOGY PHYSICIAN by Chico Lopez M.D.
--- NOTE | 2022-12-13 05:41 | ED.GENADULT ---
HPI - General Adult General Chief complaint: Shortness of Breath/Dyspnea Stated complaint: SOB, restless, unable to sleep Time Seen by Provider: 12/13/22 05:32 History of Present Illness HPI narrative: Patient is a 87-year-old female who presents the emergency department with chief complaint of shortness of breath. Patient was recently seen in the emergency department in October patient was found to have possible congestive heart failure and also to have some lymph nodes present on the CT scan patient was to follow-up with pulmonary and the family noted over the last week she has been getting more short of breath and has been having difficulty sleeping due to the shortness of breath and it is worse whenever she lays flat. They also report that she has had some edema in her lower extremities Related Data Home Medications Medication Instructions Recorded Confirmed carvedilol 12.5 mg tablet 12.5 mg PO DAILY 06/12/21 11/06/22 cyanocobalamin (vitamin B-12) 1,000 mcg PO DAILY 06/12/21 11/06/22 1,000 mcg tablet losartan 50 mg-hydrochlorothiazide 1 tablet PO DAILY 06/12/21 11/06/22 12.5 mg tablet Allergies Allergy/AdvReac Type Severity Reaction Status Date / Time No Known Allergies Allergy Verified 12/13/22 05:32 Review of Systems Review of Systems: A 10 system review of systems was completed on the patient and is negative except for what is stated in the HPI. Nursing and ancillary documentation was reviewed. [facility] Past Medical History Medical History Hypertension Social History Social History Smoking status: Never smoker Gender identity (if verbalized by the patient): Female Exam Narrative: GENERAL: Well-appearing, well-nourished, and in no acute distress. HEAD: Normocephalic, atraumatic. EYES: PERRLA and EOMI. ENT: Nares clear, no rhinorrhea or epistaxis. Mucous membranes moist. NECK: Supple. CHEST: Clear to auscultation. No respiratory distress. HEART: Regular rate and rhythm. No murmur heard. Normal peripheral pulses. ABDOMEN: Soft, nontender, nondistended, normal active bowel sounds. EXTREMITIES: Normal range of motion. +1 edema. SKIN: Warm, dry, no rash. NEURO: No focal deficits. Alert and oriented x3. PSYCH: Normal mood and affect. Course Vital Signs Vital signs: Vital Signs Temperature 36.9 C 12/13/22 05:20 Pulse Rate 104 H 12/13/22 05:20 Respiratory Rate 24 H 12/13/22 05:20 Blood Pressure 134/95 H 12/13/22 05:20 Pulse Oximetry 98 12/13/22 05:20 Oxygen Delivery Room Air 12/13/22 05:20 Temperature 36.9 C 12/13/22 05:20 Pulse Rate 100 12/13/22 05:27 Respiratory Rate 24 H 12/13/22 05:20 Blood Pressure 134/95 H 12/13/22 05:20 Pulse Oximetry 100 12/13/22 05:30 Oxygen Delivery Room Air 12/13/22 05:30 Medical Decision Making MDM Narrative Medical decision making narrative: Differential diagnosis includes pneumonia, CHF, ACS, bronchitis, upper respiratory infection. EKG shows a left bundle branch block with a rate of 103 the patient has history of a known left bundle branch block from review of previous records. History was obtained mostly through the patient's daughter as she is the patient's primary caregiver Vital Signs Vital Signs: Vital Signs Temperature 36.9 C 12/13/22 05:20 Pulse Rate 104 H 12/13/22 05:20 Respiratory Rate 24 H 12/13/22 05:20 Blood Pressure 134/95 H 12/13/22 05:20 Pulse Oximetry 98 12/13/22 05:20 Oxygen Delivery Room Air 12/13/22 05:20 Temperature 36.9 C 12/13/22 05:20 Pulse Rate 100 12/13/22 05:27 Respiratory Rate 24 H 12/13/22 05:20 Blood Pressure 134/95 H 12/13/22 05:20 Pulse Oximetry 100 12/13/22 05:30 Oxygen Delivery Room Air 12/13/22 05:30 Lab Data 12/13/22 05:34 12/13/22 05:34 Labs: Lab Results 12/13/22 02
[2022-12-13 05:51] LABS: Basophils Absolute Auto 0.1 K/mm3 (0.0-0.1); Basophils Percent Auto 0.8 % (0.2-1.2); Eosinophils Percent Auto 0.6 % (0-4.4); Hematocrit 38.1 % (37.0-47.0); Hemoglobin 12.5 g/dL (12.0-15.0); Immature Granulocyte Absolute 0.04 K/mm3 (0.00-0.031); Immature Granulocyte Percent A 0.6 % (0-0.5); Lymphocytes Absolute Auto 0.33 K/mm3 (0.9-3.2); Lymphocytes Percent Auto 5.2 % (18.3-44.2); Mean Corpuscular HGB Conc 32.8 g/dl (32-36); Mean Corpuscular Hemoglobin 26.9 pg (26-34); Mean Corpuscular Volume 81.9 fl (80-100); Mean Platelet Volume 8.8 fl (7.4-10.4); Monocytes Absolute Auto 1.1 K/mm3 (0.1-0.6); Monocytes Percent Auto 16.9 % (2.6-8.5); Neutrophils Absolute Auto 4.8 K/mm3 (1.3-6.7); Neutrophils Percent Auto 75.9 % (45.5-73.1); Platelet Count Result 580 k/mm3 (150-375); Red Blood Count 4.65 M/mm3 (4.2-5.4); Red Cell Distribution Width 11.8 % (11.5-14.5); White Blood Count 6.4 K/mm3 (4.5-10.0)
[2022-12-13 06:01] LABS: Alanine Aminotransferase 18 U/L (6-35); Alkaline Phosphatase 74 U/L (38-126); Anion Gap 7 mmol/L (8-16); Aspartate Amino Transferase 31 U/L (14-36); Bilirubin,Total 0.7 mg/dL (0.2-1.3); Blood Urea Nitrogen 13 mg/dL (7-17); Calcium 9.1 mg/dL (8.4-10.2); Carbon Dioxide 33 mmol/L (22-30); Chloride 81 mmol/L (98-107); Estimated Glomerular Filt Rate > 60; Glucose 156 mg/dL (65-110); Potassium 3.6 mmol/L (3.4-5.0); Sodium 121 mmol/L (137-145)
[2022-12-13 06:30] LABS: Influenza A QL RT-PCR Negative (Negative); Influenza B QL RT-PCR Negative (Negative); SARS-CoV-2 RNA PCR Negative
[2022-12-13 06:36] LABS: INR 1.1
[2022-12-13 06:37] LABS: Partial Thromboplastin Time 32.5 SECONDS (22.3-36.8)
--- NOTE | 2022-12-13 07:02 | PC.NURSE ---
Bedside report given to ANAMIKA Fontaine.
[2022-12-13 07:05] LABS: Magnesium 1.9 mg/dL (1.6-2.3)
[2022-12-13 07:13] LABS: NT Pro B Type Natriuretic Pept 634 pg/mL (19.9-100); Troponin I < 0.012 ng/mL (0.000-0.034)
[2022-12-13 07:22] LABS: Procalcitonin 0.1 ng/mL
[2022-12-13 10:54] LABS: Appearance Urine Clear (Clear); Bilirubin Urine Negative (Negative); Blood Urine Trace-intact (Negative); Color Urine Yellow (Yellow); Glucose Urine UA Negative (Negative); Ketones Urine Negative (Negative); Leukocyte Esterase Ur Negative LEU/UL (Negative); Nitrate Urine Negative (Negative); Protein Urine Negative (Negative); Urobilinogen Urine 0.2 mg/dL (<2.0); pH Urine 7.5 (5.0-9.0)
--- NOTE | 2022-12-13 10:57 | ADMGEN ---
This patient, Ousmane Dodd, was admitted to Medical Room 256-. Patient/family oriented to hospital policies and general routines including ID bracelet, bed and alarms, visiting hours, pain management, procedures, bathroom and other care routines, personal items, smoking policy, room service/diet, and visiting hours. Information on how to activate the Rapid Response Team has been discussed. Patient/Family are encouraged to report perceived risks to care and to ask questions if they do not understand what they are told or what they should do.
[2022-12-13 11:00] LABS: Mucus Urine Rare /lpf; Squamous Epithelial Cell Urine Rare /hpf (Few); WBC Urine 0-3 /hpf
[2022-12-13 11:04] LABS: Add Urine Microscopic? YES
[2022-12-13 11:05] LABS: Troponin I < 0.012 ng/mL (0.000-0.034)
--- NOTE | 2022-12-13 13:25 | PM.IMHP ---
H&P: HPI History of Present Illness Date/Time: 12/13/22 13:25 Chief Complaint: Shortness of breath Narrative: This is an 87-year-old female patient who initially came from [place]. She speaks very little [place]. Her daughter is at the bedside answering questions for her. The patient was diagnosed with lung nodules over a month ago and was scheduled for a biopsy however the family was due to go out of the country to [place]. Now that they have come back from their trip they are ready for the patient to have her biopsy. The patient came to the emergency room with complaints of shortness of breath. She does have a history of congestive heart failure and today she has 2+ pitting edema to her lower extremities. The patient has been getting more short of breath and has have difficulty laying flat. Her sodium today is 121 and her baseline is typically 130. Her blood glucose is 156 today. Troponin is nonreactive x3. Her BNP is 634. UA was negative patient was negative for influenza A/B and COVID. Chest x-ray was read as COPD. Chest CTA was read as no pulmonary embolus small right pleural effusion loculated laterally. Irregular spiculated lesion right lung apex slowly increasing in size since 06/12/2021. Low-grade indolent malignancy is consideration. Cavitary lesion with adjacent solid nodule left lower lobe. Solid component is also increased since 06/12/2021. Again slow growing indolent malignancy is a consideration. Stable right lower lobe pulmonary nodule. The patient was given Tylenol and Zofran in the emergency room. Pulmonary has been consulted. The patient is being admitted to observation status on the date of service of 12/13/2022. Review of Systems Review of Systems: See HPI All systems reviewed & are unremarkable except as noted in HPI and below Constitutional: Constitutional: Reports as per HPI and Reports no additional constitutional complaints Eyes: Eyes: Reports as per HPI and Reports no additional eye complaints ENT: Reports system reviewed and no additional complaints, except as documented and Reports Normal hearing present Cardiovascular: Cardiovascular: Reports no additional cardiovascular complaints Respiratory: Respiratory: Reports no additional respiratory complaints and Reports no additional respiratory complaints Gastrointestinal: Gastrointestinal: Reports as per HPI and Reports no additional gastrointestinal complaints Musculoskeletal: Musculoskeletal: Reports no additional musculoskeletal complaints Integumentary/Breasts: Skin/Breast: Reports system reviewed and no additional complaints, except as docu and Reports as per HPI Neurologic: Reports system reviewed and no additional complaints, except as documented, Reports as per HPI and Reports Normal hearing present Psychiatric: Psychiatric: Reports no additional psychiatric complaints and Reports as per HPI Endocrine: Endocrine: Reports no additional endocrine complaints Hematologic/Lymphatic: Hematologic/Lymphatic: Reports no additional hematologic/lymphatic complaints Allergic/Immunologic: Allergic/Immunologic: Reports no additional allergic/immunologic complaints [facility] Past Medical History Medical History (Updated 12/13/22 @ 16:21 by Neris Lim NP) CHF (congestive heart failure), NYHA class I Dementia Hypertension Surgical History Surgical History (Updated 12/13/22 @ 16:04 by Neris Lim NP) History of knee surgery Family History Family History (Updated 12/13/22 @ 16:05 by Neris Lim NP) Mother Hypertension Father of unknown cause Social History Social History (Updated 12/13/22 @ 16:06 by Neris Lim NP) Social History: The patient lives with her daughter. The patient has 6 children. She is . She lived in [place] [place] up until a couple years ago. Lifelong nonsmoker. No alcohol or illicit drugs. She was a homemaker. Her daughter is a durable power distance education coordinator for healthcare. Code statu
[2022-12-13 17:34] LABS: Anion Gap 4 mmol/L (8-16); Blood Urea Nitrogen 11 mg/dL (7-17); Calcium 8.6 mg/dL (8.4-10.2); Carbon Dioxide 35 mmol/L (22-30); Chloride 81 mmol/L (98-107); Estimated Glomerular Filt Rate > 60; Glucose 118 mg/dL (65-110); Potassium 3.3 mmol/L (3.4-5.0); Sodium 120 mmol/L (137-145)
[2022-12-13] MEDS: carvediloL 12.5 MG TABLET PO (20:30)
[2022-12-13 21:50] LABS: Sodium 123 mmol/L (137-145)
[2022-12-14] VITALS (11 sets, daily range): BP systolic 124–157; BP diastolic 77–90; PULSE 77–97; RESP 16–19; TEMP 36.4–37.5; O2SAT 95–100
[2022-12-14 05:58] LABS: Sodium Urine Random 73 meq/L
[2022-12-14 07:37] LABS: Basophils Percent Auto 0.8 % (0.2-1.2); Eosinophils Percent Auto 0.4 % (0-4.4); Hematocrit 35.6 % (37.0-47.0); Hemoglobin 11.7 g/dL (12.0-15.0); Immature Granulocyte Absolute 0.04 K/mm3 (0.00-0.031); Immature Granulocyte Percent A 0.8 % (0-0.5); Lymphocytes Absolute Auto 0.31 K/mm3 (0.9-3.2); Lymphocytes Percent Auto 6.3 % (18.3-44.2); Mean Corpuscular HGB Conc 32.9 g/dl (32-36); Mean Corpuscular Hemoglobin 26.9 pg (26-34); Mean Corpuscular Volume 81.8 fl (80-100); Mean Platelet Volume 8.5 fl (7.4-10.4); Monocytes Percent Auto 19.2 % (2.6-8.5); Neutrophils Absolute Auto 3.6 K/mm3 (1.3-6.7); Neutrophils Percent Auto 72.5 % (45.5-73.1); Platelet Count Result 519 k/mm3 (150-375); Red Blood Count 4.35 M/mm3 (4.2-5.4); Red Cell Distribution Width 11.9 % (11.5-14.5)
[2022-12-14 07:50] LABS: Alanine Aminotransferase 16 U/L (6-35); Albumin Level 3.6 g/dL (3.5-5.1); Alkaline Phosphatase 74 U/L (38-126); Anion Gap 6 mmol/L (8-16); Aspartate Amino Transferase 29 U/L (14-36); Bilirubin,Total 0.6 mg/dL (0.2-1.3); Blood Urea Nitrogen 11 mg/dL (7-17); Carbon Dioxide 34 mmol/L (22-30); Chloride 84 mmol/L (98-107); Estimated Glomerular Filt Rate > 60; Glucose 106 mg/dL (65-110); Magnesium 2.1 mg/dL (1.6-2.3); Potassium 3.8 mmol/L (3.4-5.0); Sodium 124 mmol/L (137-145)
--- NOTE | 2022-12-14 08:03 | PM.IMPN ---
Progress Note: A&P Assessment and Plan (1) CHF (congestive heart failure), NYHA class I: Code(s): I50.9 - Heart failure, unspecified Status: Acute Assessment and Plan: Echo from November 08, 2022 showed an EF of 55-60% with grade 1 diastolic dysfunction Chest x-ray from 12/13 showed small loculated right-sided pleural effusion, COPD, no significant vascular congestion Appears euvolemic at this time (2) Mass of left lung: Code(s): R91.8 - Other nonspecific abnormal finding of lung field Status: Acute Assessment and Plan: Consult oncology pending, will likely need biopsy versus outpatient monitoring with imaging (3) COPD (chronic obstructive pulmonary disease): Code(s): J44.9 - Chronic obstructive pulmonary disease, unspecified Status: Acute Assessment and Plan: Stable, appreciate pulmonology consultation (4) Dementia: Code(s): F03.90 - Unspecified dementia, unspecified severity, without behavioral disturbance, psychotic disturbance, mood disturbance, and anxiety Status: Acute Assessment and Plan: Stable (5) Hyponatremia: Code(s): E87.1 - Hypo-osmolality and hyponatremia Status: Acute Assessment and Plan: Improving, continue to hold hydrochlorothiazide Continue losartan (6) Hypertension: Code(s): I10 - Essential (primary) hypertension Status: Acute Assessment and Plan: Blood pressures reviewed today 12/14 Mildly elevated, monitor Continue Coreg and losartan, hydrochlorothiazide on hold secondary to hyponatremia (7) Acute DVT (deep venous thrombosis): Code(s): I82.409 - Acute embolism and thrombosis of unspecified deep veins of unspecified lower extremity Status: Acute Assessment and Plan: Acute thrombosis of right gastrocnemius vein with possible old thrombosis in the bilateral posterior tibial and peroneal veins Hold off on anticoagulation for now, likely will need biopsy of lung mass Would recommend anticoagulation prior to 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 No chest pain or shortness of breath. No nausea, vomiting or diarrhea. No fevers or chills. Daughters in the room and states patient had orthopnea prior to admission that is now resolved. She has also noticed significantly decreased p.o. intake that was concerning to her. Review of Systems Review of Systems: ROS unobtainable: Yes unobtainable due to mental status Exam Narrative: General: No acute distress, alert and oriented per baseline HEENT: Atraumatic, normocephalic, mucous membranes moist CV: Regular rate and rhythm, S1, S2 Lungs: Decreased breath sounds throughout, no wheeze noted, moderate air entry Abdomen: Soft, nontender, nondistended Extremities: Normal to inspection Skin: No rashes noted, no lesions or wounds seen Psych: Euthymic, normal affect Objective Data Vital Signs Vital Signs: Vital Signs - 24 hr 12/13/22 08:45 12/13/22 09:00 12/13/22 10:43 Temperature 98.0 F Pulse Rate 78 82 80 Respiratory Rate 17 16 18 Blood Pressure 142/97 H 158/96 H 151/96 H Pulse Oximetry 98 100 99 Oxygen Delivery 12/13/22 11:00 12/13/22 12:00 12/13/22 16:00 Temperature Pulse Rate 74 92 Respiratory Rate Blood Pressure Pulse Oximetry Oxygen Delivery Room Air 12/13/22 20:13 12/13/22 20:30 12/13/22 20:00 Temperature 97.7 F Pulse Rate 90 94 94 Respiratory Rate 16 16 Blood Pressure 141/88 H Pulse Oximetry 98 98 Oxygen Delivery Room Air 12/13/22 20:00 12/14/22 00:00 12/14/22 04:00 Temperature Pulse Rate 87 94 77 Respiratory Rate Blood Pressure Pulse Oximetry Oxygen Delivery 12/14/22 05:42 Temperature 98.7 F Pulse
[2022-12-14] MEDS: CYANOCOBALAMIN 1,000 MCG TABLET 1000 MCG PO (08:08)
[2022-12-14] MEDS: carvediloL 12.5 MG TABLET PO ×2 (08:10→20:35)
[2022-12-14 08:49] LABS: Eosinophil Urine None Seen % (None Seen); Urine Eos QC 2nd Tech Confirmed
--- NOTE | 2022-12-14 10:25 | PM.CNPUL ---
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 Gastrocnemius thrombosis can propagate. I will discuss with Dr. Merino plans for anticoagulation. A gastrocnemius thrombus does not require anticoagulation because it is not a deep vein. 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 (2) VERGARA (dyspnea on exertion): Code(s): R06.09 - Other forms of dyspnea Status: Acute Assessment and Plan: She developed dyspnea for 2 months or longer, especially exertion during the last several days. A week ago she was able walk up 15 stairs several times a day. SHE does not have a pulmonary embolus on chest CTA, however she does have anemia, Right gastrocnemius DVT, kyphosis, and elevated BNP. December 13 her BNP was 634 which is high even for an elderly person. Her prior BNPs have been lower, October 25 was 571 in last May it was 403. She may benefit from supportive care with nebulized bronchodilators, checking overnight oximetry while she is here in the hospital, consider ABG. She has low Na and low chloride, high serum bicarbonate. The increase in HCO3 might be a response to low chloride but could reflect a compensatory metabolic alkalosis due to respiratory acidosis. She may benefit from a blood gas but use ABGs are a little uncomfortable. She is a never smoker. (3) Lung nodule: Code(s): R91.1 - Solitary pulmonary nodule Status: Acute Assessment and Plan: RUL spiculated nodule and LLL nodule, slow growing, other areas discussed w Dr Cates. She may have a slow growing mass in the GAVIN. The area is diffuse, is not a good area to do a biopsy. The radiologist thought the yield might be low. It has been relatively stable for 7 years. A PET scan may not even be that helpful. If it is very slow growing the scan will be negative. She may live many more years without being impacted by the nodule. This can be followed as an out patient possibly with PET/CT. History of Present Illness History of Present Illness Consult date: 12/14/22 Requesting physician: Neris Lim NP Chief complaint: hypernatremia, lung mass, dyspnea Narrative: pt seen Dec 14 at 10:35 am NEW: Ousmane Dodd is an 87-year-old woman with shortness of breath admitted 12/13/22. She is a patient in our clinic practice, saw Dr Gordillo in October 31, 2022. She was scheduled for a lung biopsy but had to cancel due to travel plans. She was admitted 12/13/22 with increased shortness of breath and hyponatremia Na+ 120. This is improving, today 124. When she saw Dr. Gordillo she was complaining of having shortness of breath over the previous 6 weeks and was only able to walk 10-15 steps. She had no infectious complaints. She was exposed to wood burning stove for 30 years growing up in [place]. 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 She was not able to perform an outpatient pulmonary function test because she was too short of breath. An overnight oximetry was requested however the patient only had the device on for 9 minutes. This was not sufficient to evaluate her need for O2 at night. I will order PFTs, home O2 assessment an overnight oximetry to assess her lung function, lung volumes and oxygenation.? She had a chest CTA which excluded
[2022-12-14] MEDS: LOSARTAN POTASSIUM 50 MG TABLET PO (12:46)
[2022-12-15] VITALS (11 sets, daily range): BP systolic 108–181; BP diastolic 66–97; PULSE 79–91; RESP 17–20; TEMP 36.9–37.7; O2SAT 95–98
[2022-12-15] MEDS: hydrALAZINE HCL 20 MG/ML VIAL 10 MG IV PUSH (05:54)
[2022-12-15 08:08] LABS: Iron 20 ug/dL (37-170)
[2022-12-15 08:18] LABS: Percent Iron Saturation 8 % (20-50)
[2022-12-15] MEDS: LOSARTAN POTASSIUM 50 MG TABLET PO (09:12)
[2022-12-15] MEDS: CYANOCOBALAMIN 1,000 MCG TABLET 1000 MCG PO (09:12)
[2022-12-15] MEDS: carvediloL 12.5 MG TABLET PO ×2 (09:12→10:00)
--- NOTE | 2022-12-15 09:34 | PM.DS ---
DS: Admitting Diagnosis Discharge Date 12/15/2022 Admitting Diagnosis Shortness of breath DS: Discharge Diagnosis Discharge Diagnosis (1) CHF (congestive heart failure), NYHA class I: Code(s): I50.9 - Heart failure, unspecified Status: Acute Assessment and Plan: Echo from November 08, 2022 showed an EF of 55-60% with grade 1 diastolic dysfunction Chest x-ray from 12/13 showed small loculated right-sided pleural effusion, COPD, no significant vascular congestion Appears euvolemic at this time, orthopnea resolved--this was main concern of family, the orthopnea and VERGARA, which is now resolved, could have been mild HF exacerbation? Family also worried about decreased appetite, unsure of etiology of this, appears improved for now, could also be s/e of advancing dementia? (2) Mass of left lung: Code(s): R91.8 - Other nonspecific abnormal finding of lung field Status: Acute Assessment and Plan: Consult oncology pending, will likely need biopsy versus outpatient monitoring with imaging Update: Oncology is recommending outpatient PET scan, anticoagulation for the DVT and possible biopsy (3) COPD (chronic obstructive pulmonary disease): Code(s): J44.9 - Chronic obstructive pulmonary disease, unspecified Status: Acute Assessment and Plan: Stable, appreciate pulmonology consultation PFTs, home O2 eval and apnealink ordered Recommend PET/CT outpatient, slow growing mass, likely not concerning and family and patient would like to not opt for aggressive treatment options at this time (4) Dementia: Code(s): F03.90 - Unspecified dementia, unspecified severity, without behavioral disturbance, psychotic disturbance, mood disturbance, and anxiety Status: Acute Assessment and Plan: Stable (5) Hyponatremia: Code(s): E87.1 - Hypo-osmolality and hyponatremia Status: Acute Assessment and Plan: Improving, continue to hold hydrochlorothiazide Continue losartan Continues to improve, [facility] will be d/c shelter (6) Hypertension: Code(s): I10 - Essential (primary) hypertension Status: Acute Assessment and Plan: Blood pressures reviewed today 12/15, still quite elevated Mildly elevated, monitor Continue Coreg and losartan, d/c [facility] shelter due to chronic hyponatremia Increase coreg to 25 mg BID and recheck BP, manage outpatient, may need higher doses of coreg or could increase losartan to 100 mg, defer further care to PCP (7) Acute DVT (deep venous thrombosis): Code(s): I82.409 - Acute embolism and thrombosis of unspecified deep veins of unspecified lower extremity Status: Acute Assessment and Plan: Acute thrombosis of right gastrocnemius vein with possible old thrombosis in the bilateral posterior tibial and peroneal veins Hold off on anticoagulation for now, likely will need biopsy of lung mass Would recommend anticoagulation prior to discharge due to chronic bilateral DVTs and possible malignancy, will need to discuss risks and benefits with family due to advanced age and comorbidities Plan DVT prophylaxis pending possible lung biopsy, hold off on SCDs GI prophylaxis not indicated Code status full code DS: Summary Hospital Course Hospital Course: 87-year-old female presenting with edema concerning for heart failure exacerbation. She recently was diagnosed with lung nodules and is planned to have a biopsy on Sunday. She was noted to have a small right pleural effusion as well as a spiculated lung mass that has been slowly increasing in size over the last few years. Concern is for malignancy. Pulmonology and Oncology both consulted. The patient has orthopnea and lower extremity edema resolved without any intervention. 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 The patient will be started on anticoagulation as she m
--- NOTE | 2022-12-15 17:45 | PDONCCN ---
HPI - Date of Consult Date/Time: 12/15/22 17:45 Requesting Physician: Camille Boyce MD Primary Care Provider: César Garcia MD - Consult Narrative Reason for consult: Likely lung cancer Narrative: Ousmane Dodd is a 87 year old female from [facility] who recently came back from her trip to [facility]. She denies any history of smoking but had secondhand smoking exposure from the . She came into the ER with complain of shortness of breath with tiredness and fatigue and poor appetite. According to the daughter she has lost almost 5-10 lb weight. CTA chest was performed that showed no evidence of pulmonary embolism but there was small right pleural sided pleural effusion and spiculated lesion in the right lung apex slowly growing since 2020. There was stable right lower lobe pulmonary nodule as well. Doppler study showed acute right gastrocnemius vein thrombosis. Labs showed hyponatremia and mild anemia. She has some shortness of breath. Denies any chest pain. Denies any hemoptysis. No headache in seizures. No bone pain. She denies any previous history of malignancy. History was obtained in kyrgyz language. Review of Systems - Review of Systems All systems reviewed & are unremarkable except as noted in HPI and bel - Neurologic Reports system reviewed and no additional complaints, except as documented, Reports hearing normal [facility] Medical History: Medical History (Last Updated 12/13/22 @ 16:21 by Neris Lim NP) CHF (congestive heart failure), NYHA class I Dementia Hypertension Surgical History: Surgical History (Last Updated 12/13/22 @ 16:04 by Neris Lim NP) History of knee surgery Family History: Family History (Last Updated 12/13/22 @ 16:05 by Neris Lim NP) Mother Hypertension Father of unknown cause - Social History Social History: Social History (Last Updated 12/13/22 @ 16:06 by Neris Lim NP) Gender Identity: Gender identity (if verbalized by the patient): Female Alcohol Use: Alcohol intake: never Substance Use: Substance use: never Substance use type: does not use Others: Spiritual care concerns: No Smoking Status: Smoking status: Never smoker Social Determinants of Health: Has the Lack of Transportation Kept You From Medical Appointments or From Getting Medications?: No Within the Past 12 Months, Were You Worried Whether Your Food Would Run Out Before You Got Money to Buy More?: Never True What is Your Housing Situation Today?: I Have Housing Are You Worried That in the Next 2 Months, You May Not Have Your Own Housing to Live In?: No Do You Have Trouble Paying Your Heating Or Electricity Bill?: No Do You Have Trouble Paying For Medicines?: No Are You Currently Unemployed and Looking for Work?: No Highest Level of Education Completed: Don't Know Do You Have Trouble With Childcare or the Care of a Family Member?: No Exam - Vital Signs Vital Signs - 24 hr 12/14/22 19:18 12/14/22 20:35 12/14/22 20:00 Temperature 36.4 C Pulse Rate 80 80 78 Respiratory Rate 18 Blood Pressure 148/80 H Pulse Oximetry 100 Oxygen Delivery 12/14/22 20:00 12/15/22 02:24 12/15/22 00:00 Temperature Pulse Rate 80 82 Respiratory Rate 18 Blood Pressure Pulse Oximetry 100 95 Oxygen Delivery Room Air Room Air 12/15/22 04:00 12/15/22 05:33 12/15/22 05:50 Temperature 37.7 C H 36.9 C Pulse Rate 79 86 84 Respiratory Rate 20 Blood Pressure 181/97 H 177/94 H Pulse Oximetry 98 Oxygen Delivery 12/15/22 09:12 12/15/22 10:00 12/15/22 08:00 Temperature Pulse Rate 84 91 Respiratory Rate Blood Pressure Pulse Oximetry 98 Oxygen Delivery Room Air 12/15/22 08:00 12/15/22 12:00 12/15/22 14:51 Temperature 36.9 C Pulse Rate 91 84 80 Respiratory Rate 17 Blood Pressure 108/66 Pulse Oximetry 97 Oxygen Delivery 0
[2022-12-16 20:43] LABS: Osmolality, Urine 386 mOsm/kg (50-1200)
== END 2022-12-15 18:10 | disposition home or self-care (01) ==
LOC: ANHED 08:34 → ANH2MED 10:09
PROVIDERS: Emergency Medicine; Internal Medicine Critical Care Medicine; Nurse Practitioner; Admitting Provider Family Medicine; Emergency Provider Emergency Medicine; PCP Internal Medicine; Visit Provider Student in an Organized Health Care Education/Training Program
DX: I11.0 Hypertensive heart disease with heart failure (principal); I50.9 Heart failure, unspecified; R91.8 Other nonspecific abnormal finding of lung field; J44.9 Chronic obstructive pulmonary disease, unspecified; F03.90 Unspecified dementia, unspecified severity, without behavioral disturbance, psychotic disturbance, mood disturbance, and anxiety; E87.1 Hypo-osmolality and hyponatremia; R06.09 Other forms of dyspnea; Z20.822 Contact with and (suspected) exposure to COVID-19; J90 Pleural effusion, not elsewhere classified; I82.461 Acute embolism and thrombosis of right calf muscular vein; M71.22 Synovial cyst of popliteal space [Baker], left knee; M71.21 Synovial cyst of popliteal space [Baker], right knee; R60.0 Localized edema; R79.89 Other specified abnormal findings of blood chemistry; R94.31 Abnormal electrocardiogram [ECG] [EKG]; Z77.22 Contact with and (suspected) exposure to environmental tobacco smoke (acute) (chronic); Z79.51 Long term (current) use of inhaled steroids; Z79.899 Other long term (current) drug therapy
CPT/HCPCS: 36415; 71046; 71275; 80048; 80053; 81001; 82728; 83540; 83550; 83605; 83735; 83880; 83935; 84145; 84295; 84300; 84443; 84484; 85025; 85610; 85730; 85999; 87636; 93005; 93970; 94762; 99285; A9270; G0378; G0379; J0360; Q9967

== ENCOUNTER 2023-01-02 12:19 | Outpatient (CLI) | payer OTHER, SELFPAY ==
--- NOTE | ~2023-01-02 | PE_ITS ---
EXAMINATION: PET skull to mid thigh DATE: 01/02/2023 14:13 INDICATION: Solitary pulmonary nodule TECHNIQUE: Blood glucose level was 92 mg/dL. 9.152 mCi of 18-fluorodeoxyglucose (18-FDG) was administ ered i.v. Low dose computed tomography (CT) images were acquired from the base of the brain to the pr oximal thighs for attenuation correction and anatomic localization. Positron emission tomography (PET ) images were acquired in the same distribution beginning 66 minutes after injection. Images includin g fused PET/CT images were reconstructed in axial, coronal, and sagittal planes. Automated exposure c ontrol technique was employed. The dose-length product was 417.28mGy-cm. COMPARISON: Chest CT dated 12/13/2022 FINDINGS: Head/neck: There is symmetric increased activity in the oral cavity, parotid glands, submandibular glands, edmond ngeal muscles and ocular muscles without CT correlate, likely physiologic. No pathologically enlarged cervical lymphadenopathy or suspicious foci of increased FDG uptake in the visualized head or neck. Chest: Mild emphysema. There is diffuse increased FDG uptake along the visceral and parietal pleura in the m id to lower right hemithorax including around the periphery of a small loculated likely exudative rig ht pleural effusion located primarily along the lateral side of the pleural space in the lower lung z one. The maximal SUV of the pleural uptake is 13.2. There appears be diffuse mild relatively uniform thickening of the pleura with no discrete pleural-based nodules. There are several focal regions of m ild FDG uptake in both lungs. This includes along a relatively flat 1.6 cm subtle solid nodule at the right apex with maximal SUV of 2.1, a 1.3 cm left lower lobe cavitary lesion with peripheral 1.2 x 0 .7 cm ovoid nodular density and with maximal SUV of 1.7, a 5 mm subtle solid nodule in the superior s egment of the right lower lobe with maximal SUV of 1.4, a 5 mm nodule in the anterior segment of the right upper lobe with maximal SUV of 1.2 and a 9 mm subtle solid nodule at the apical segment of the left upper lobe with maximal SUV of 1.4. No other more FDG avid pulmonary lesions identified. There a re FDG avid mediastinal and bilateral hilar lymph nodes with maximal SUV values of 4.6 for inferior r ight paratracheal lymph node, 6.0 at the right hilum and 5.4 at the left hilum. No evidence associate d abnormal enlargement of the hilar or mediastinal lymph nodes which are difficult to distinguish fro m the adjacent vasculature due to the absence of intravenous contrast. Cardiomegaly. Small amount of atherosclerotic coronary artery calcification. No pericardial effusion. Thoracic aorta is normal in c aliber. Small sliding-type hiatal hernia. Abdomen/pelvis/proximal thighs: There are couple relatively well-defined subcentimeter low-attenuation lesions without abnormally inc reased FDG uptake in the right hepatic lobe most likely cysts or hemangiomas. Physiologic renal accum ulation and excretion of FDG activity in the kidneys, bladder and along portions of ureters. Small ph otopenic defect associated with a subcentimeter hyperdense proteinaceous/hemorrhagic right renal cyst . Normal degree and heterogenous pattern of increased uptake throughout the liver without radiologic correlate or dominant FDG avid lesion. The gallbladder, pancreas, spleen and bilateral adrenal glands are normal. Mild uptake scattered throughout the bowels without radiologic correlate, also likely ph ysiologic. Focal increased uptake along the posterior aspect of the left greater trochanter without r adiologic correlate consistent with trochanteric bursitis. No other abnormal foci of increased FDG up take or pathologically enlarged lymphadenopathy in the abdomen, pelvis or proximal thighs. MUSCULOSKELETAL: Thoracic kyphosis. Moderate to severe spondylosis throughout the cervical, thoracic and lumbar spine. Chr
[2023-01-02 12:51] LABS: Glucose Point of Care 92 mg/dl (65-105)
== END 2023-01-02 12:20 | disposition home or self-care (01) ==
LOC: ANHIMG 12:21
PROVIDERS: PCP Internal Medicine; Visit Provider Internal Medicine Pulmonary Disease
DX: R91.8 Other nonspecific abnormal finding of lung field (principal); R91.1 Solitary pulmonary nodule; K44.9 Diaphragmatic hernia without obstruction or gangrene; J43.9 Emphysema, unspecified
CPT/HCPCS: 78815; A9552

== ENCOUNTER 2023-02-19 08:17 | Emergency (ER) | payer OTHER, SELFPAY ==
[2023-02-19] VITALS (48 sets, daily range): BP systolic 76–133; BP diastolic 56–116; PULSE 55–96; RESP 14–40; TEMP 37.1; O2SAT 79–100
--- NOTE | ~2023-02-19 | XR_ITS ---
EXAMINATION: XR chest 2V DATE: 02/19/2023 09:58 INDICATION: Shortness of breath. TECHNIQUE: Frontal and lateral views of the chest were obtained. COMPARISON: Chest 2 views 12/13/2022, chest CT 12/13/2022 FINDINGS: The patient is rotated to her right. There is a small loculated right pleural effusion. The re is a diffuse interstitial pattern in the lungs. There are airspace opacities in right mid and lowe r lung zones and left lower lung zone. No pneumothorax. Cardiomegaly is noted. There is mild chronic anterior wedging of multiple vertebral bodies. IMPRESSION: 1. Diffuse lung disease, consistent with pulmonary edema versus pneumonia. 2. Stable small loculated right pleural effusion. 3. Cardiomegaly. Reviewed, dictated and finalized at location A.
--- NOTE | 2023-02-19 08:26 | ECG_ITS ---
Measurements Intervals Wray Rate: 84 P: 35 MI: 205 QRS: -48 QRSD: 139 T: 66 QT: 405 QTc: 480 Interpretive Statements SINUS RHYTHM LEFT AXIS DEVIATION POSSIBLE LEFT ATRIAL ENLARGEMENT LEFT BUNDLE BRANCH BLOCK BASELINE ARTIFACT- V5 ABNORMAL ECG COMPARED TO ECG 12/13/2022 05:29:20 SINUS RHYTHM NOW PRESENT Electronically Signed On 02-19-2023 9:32:55 CDT by Elder Hoffman D.O.
--- NOTE | 2023-02-19 08:34 | ED.SOB ---
HPI - SOB/Dyspnea General Chief Complaint: Shortness of Breath/Dyspnea Stated Complaint: shortness of breath and swelling Time Seen by Provider: 02/19/23 08:24 History of Present Illness HPI Narrative: Per daughter at bedside, patient had been in good health until about a year ago when she became weaker and more dyspneic, had been seen by multiple specialists and at this time in discussion with family and patient, they are trying to keep her comfortable for as long as possible. Here because the last 2 days patient has been having lower energy and more dyspnea, and has not been wanting to eat. Related Data Home Medications Medication Instructions Recorded Confirmed cyanocobalamin (vitamin B-12) 1,000 mcg PO DAILY 06/12/21 01/17/23 1,000 mcg tablet furosemide 20 mg tablet 20 mg PO QAM 01/17/23 01/17/23 Allergies Allergy/AdvReac Type Severity Reaction Status Date / Time No Known Allergies Allergy Verified 02/19/23 08:41 Review of Systems Review of Systems: CONST: No fever. HEENT: No sore throat C/V: No chest pain RESP: Dyspnea GI: Poor appetite : No dysuria. M/S: No joint pain. SKIN: No rash. NEURO: [No headache or focal numbness or weakness] PSYCH: [No depression] ON LICENSE OF [facility] Past Medical History Medical History CHF (congestive heart failure), NYHA class I Dementia Hypertension Surgical History Surgical History History of knee surgery Family History Family History Mother Hypertension Father of unknown cause Social History Social History Social History: The patient lives with her daughter. The patient has 6 children. She is . She lived in [place] up until a couple years ago. Lifelong nonsmoker. No alcohol or illicit drugs. She was a homemaker. Her daughter is a durable power tax associate attorney for healthcare. Code status full code Smoking status: Never smoker Alcohol intake: never Substance use: never Substance use type: does not use Lack of Transportation: No Lack of Food: Never True Current Housing: I Have Housing Concerned About Future Housing: No Difficulty Paying Gas/Electric Bills: No Difficulty Paying for Meds: No Currently Unemployed: No Education: Don't Know Difficulty w/ Childcare or Family Care: No Gender identity (if verbalized by the patient): Female Spiritual care concerns: No Exam Narrative: EXAMINATION OF ORGAN SYSTEMS/BODY AREAS: Constitutional: Vital signs per nursing GENERAL: Dyspneic HEAD: Normal with no signs of head trauma. EYES: EOMI, conjunctiva normal ENT: Hearing grossly intact LUNGS: Labored respirations, some wheezing HEART: [Regular rate and rhythm] ABD: [Soft], [nontender to palpation] EXT: Normal range of motion SKIN: [No rashes or lesions.] NEURO: [Alert. No gross focal sensory or strength deficits.] PSYCH: Normal affect Course Vital Signs Vital signs: Vital Signs Pulse Rate 96 02/19/23 08:27 Respiratory Rate 32 H 02/19/23 08:27 Blood Pressure 104/73 02/19/23 08:27 Temperature 98.7 F 02/19/23 08:28 Pulse Rate 64 02/19/23 12:36 Respiratory Rate 19 02/19/23 12:36 Blood Pressure 97/70 L 02/19/23 11:30 Pulse Oximetry 94 02/19/23 12:36 Oxygen Delivery Room Air 02/19/23 08:40 MDM - SOB/Dyspnea MDM Narrative Medical decision making narrative: 87-year-old female presenting with dyspnea, she does have history of heart failure, and COPD, she has not been eating over the last 2 days, vital signs notable for hypotension and hypoxia. I am concerned for possible pneumonia, COPD exacerbation, CHF exacerbation, lower concern for ACS or PE without any chest pain, patient is also therapeutic on anticoagulation and had a recent CT PE that was negative. Given her low blood p
--- NOTE | 2023-02-19 08:40 | PC.NURSE ---
This RN placed pt on 2 L NC O2 due to 79% on room air. O2 is now 97% on 2 L O2 via NC.
[2023-02-19] MEDS: methylPREDNISolone SOD SUCC 125 MG VIAL IV PUSH (08:54)
[2023-02-19] MEDS: IPRATROPIUM BR 0.02% INH SOLN 0.5 MG/2.5 ML VIAL INHALATION (09:15)
[2023-02-19] MEDS: ALBUTEROL SULFATE NEB 2.5 MG/3 ML INH INHALATION (09:15)
[2023-02-19 09:19] LABS: Alveolar/Arterial O2 Gradient 208.4 mmHg; Base Excess ABG 2.7 mEq/l (+/-2.0); Fractional Inspired Oxygen 48 %; HCO3 ABG 27.5 mEq/l (22.0-26.0); Oxygen Content ABG 15.8 %vol (16.0-22.0); Oxygen Saturation ABG 96.7 % (95.0-100.0); Oxyhemoglobin 94.1 % THb (90.0-100.0); PCO2 ABG 42.7 mmHg (35.0-45.0); PO2 ABG 85.6 mmHg (80.0-100.0); PO2 FiO2 Ratio Arterial Blood 1.78 %; Total Hemoglobin 11.9 g/dL (12.0-18.0); pH ABG 7.426 (7.350-7.450)
[2023-02-19] MEDS: LACTATED RINGERS 1,000 ML 999 ML IV CONT (09:19)
[2023-02-19 09:20] LABS: Device NASAL CANNULA; Modified Allen's Test Pass; Site Drawn RIGHT BRACHIAL
[2023-02-19 09:35] LABS: Basophils Percent Auto 0.3 % (0.2-1.2); Hematocrit 35.3 % (37.0-47.0); Hemoglobin 10.9 g/dL (12.0-15.0); Immature Granulocyte Absolute 0.08 K/mm3 (0.00-0.031); Immature Granulocyte Percent A 1.3 % (0-0.5); Lymphocytes Percent Auto 6.6 % (18.3-44.2); Mean Corpuscular HGB Conc 30.9 g/dl (32-36); Mean Corpuscular Hemoglobin 25.6 pg (26-34); Mean Corpuscular Volume 82.9 fl (80-100); Mean Platelet Volume 9.6 fl (7.4-10.4); Monocytes Absolute Auto 0.2 K/mm3 (0.1-0.6); Monocytes Percent Auto 3.3 % (2.6-8.5); Neutrophils Absolute Auto 5.3 K/mm3 (1.3-6.7); Neutrophils Percent Auto 88.5 % (45.5-73.1); Platelet Count Result 203 k/mm3 (150-375); Red Blood Count 4.26 M/mm3 (4.2-5.4); Red Cell Distribution Width 14.8 % (11.5-14.5)
[2023-02-19 09:45] LABS: Alanine Aminotransferase 111 U/L (6-35); Albumin Level 2.8 g/dL (3.5-5.1); Alkaline Phosphatase 150 U/L (38-126); Anion Gap 5 mmol/L (8-16); Aspartate Amino Transferase 162 U/L (14-36); Bilirubin,Total 0.8 mg/dL (0.2-1.3); Blood Urea Nitrogen 37 mg/dL (7-17); Carbon Dioxide 29 mmol/L (22-30); Chloride 93 mmol/L (98-107); Estimated Glomerular Filt Rate 59; Glucose 197 mg/dL (65-110); Potassium 4.1 mmol/L (3.4-5.0); Sodium 127 mmol/L (137-145)
[2023-02-19 09:47] LABS: INR 1.2; Prothrombin Time 16.1 Seconds (11.1-14.7)
[2023-02-19 09:48] LABS: Partial Thromboplastin Time 31.5 SECONDS (22.3-36.8)
--- NOTE | 2023-02-19 09:56 | PC.NURSE ---
Pt to XRAY via stretcher at this time.
[2023-02-19 09:59] LABS: NT Pro B Type Natriuretic Pept 10900 pg/mL (19.9-100); Troponin I 0.104 ng/mL (0.000-0.034)
[2023-02-19 10:14] LABS: Influenza A QL RT-PCR Negative (Negative); Influenza B QL RT-PCR Negative (Negative); RSV RNA, RT-PCR Negative (Negative); SARS-CoV-2 RNA PCR Negative (Negative)
--- NOTE | 2023-02-19 11:59 | PCCCNOTE ---
Addendum entered by Linn Reardon RN 02/19/23 16:05: On board w/ hospice on home, awaiting equipment to be delivered and then to dc patient via ambulance. Addendum entered by Linn Reardon RN 02/19/23 12:56: [facility] Toro meeting with daughter Melissa with her on speaker phone, location family services room. Original Note: Met with patient and daughter in ED room 2. Patient is sleeping and not engage, spoke with daughter Melissa. She confirms that patient has COPD, CHF and dementia and over the last year has had a significant decline. Daughter does not want intubation or any aggressive measures but okay with antibiotics and medications but also thinking end of life care. Explained hospice to daughter and she is agreeable to meet with hospice to get more information. She does not know what hospice company she would want to go with. Agreeable to meet with [facility]. Called to [facility], she will have a family liason start to head over to the ED. Fax'd facesheet, ER note and order.
--- NOTE | 2023-02-19 12:19 | PM.IMHP ---
H&P: HPI History of Present Illness Date/Time: 02/19/23 12:19 Chief Complaint: Shortness of breath Narrative: 87yo female with CHF, dementia and HTN here for shortness of breath. Door the history is obtained from family. And is on increasing shortness of breath. Patient has had poor oral intake recently. She has warm to touch with some subjective fevers. She does not wear oxygen at home. This been no chest pain or abdominal pain. She lives with her daughter. She is a nonsmoker. She was recently diagnosed with a DVT 2 months ago. She has been compliant with her anticoagulation. She has been unsteady on her feet but seems to be more chronic. Also during the hospital course, she was found to have pulmonary nodules concerning for cancer. PET scan performed on 01/02/2023 did show mild uptake likely infectious or inflammatory as well as diffuse uptake along the right pleural effusion. Plans for repeat CT in 6 months. She presented to the ED for evaluation. In the ED, BP was 91/63 and RR 40. EKG showing Left BBB and NSR. LFTs elevated. BNP 11K. Influenza, RSV and COVID negative. Trop 0.1. CXR showing diffuse lung disease c/w pulmonary edema or PNA. Stable small loculated right pleural effusion. She was given Solu-Medrol, nebulizer treatments and abx. BP remained soft. Discussed with ER physician about placing central line for pressors but family declined. Spoke with daughter at bedside and son by phone. They do not want intubation, chest compresions or central lines but are okay with medications to try to improve her condition. Review of Systems Review of Systems: ROS unobtainable: Yes unobtainable due to mental status PMFSH Past Medical History Medical History CHF (congestive heart failure), NYHA class I Dementia Hypertension Surgical History Surgical History History of knee surgery Family History Family History Mother Hypertension Father of unknown cause Social History Social History Social History: The patient lives with her daughter. The patient has 6 children. She is . She lived in [place] up until a couple years ago. Lifelong nonsmoker. No alcohol or illicit drugs. She was a homemaker. Her daughter is a durable power admitted attorneys for healthcare. Code status full code Smoking status: Never smoker Alcohol intake: never Substance use: never Substance use type: does not use Lack of Transportation: No Lack of Food: Never True Current Housing: I Have Housing Concerned About Future Housing: No Difficulty Paying Gas/Electric Bills: No Difficulty Paying for Meds: No Currently Unemployed: No Education: Don't Know Difficulty w/ Childcare or Family Care: No Gender identity (if verbalized by the patient): Female Spiritual care concerns: No Meds Home Medications and Allergies Home Medications Medication Instructions Recorded Confirmed Type cyanocobalamin (vitamin B-12) 1,000 mcg PO DAILY 06/12/21 01/17/23 History 1,000 mcg tablet albuterol sulfate 90 mcg/actuation 2 inh inhalation Q4H PRN shortness 11/09/22 01/17/23 Rx aerosol inhaler of breath or wheezing #8.5 grams apixaban 5 mg tablet (Eliquis) 5 mg PO BID 2 tabs twice daily x 7 12/15/22 01/17/23 Rx days, then 1 tab twice rob 1 month #70 tabs carvedilol 25 mg tablet (Coreg) 25 mg PO Q12HR 1 month #60 tabs 12/15/22 01/17/23 Rx losartan 50 mg tablet (Cozaar) 50 mg PO DAILY 1 month #30 tabs 12/15/22 01/17/23 Rx furosemide 20 mg tablet 20 mg PO QAM 01/17/23 01/17/23 History tiotropium 2.5 mcg-olodaterol 2.5 1 puff inhalation BID #4 grams 01/17/23 01/17/23 Rx mcg/actuation mist for inhalation Allergies Allergy/AdvReac Type Severity Reaction Status Date / Time No Known All
[2023-02-19 13:37] LABS: Troponin I 0.103 ng/mL (0.000-0.034)
[2023-02-19 13:52] LABS: Hepatitis B Surface Antigen Negative (Negative)
[2023-02-19 13:58] LABS: HAV RESULT Negative (Negative); Hepatitis B Core IgM Result Negative (Negative)
[2023-02-19 14:09] LABS: Hepatitis C Virus Antibody Negative (Negative)
--- NOTE | 2023-02-19 17:29 | PC.NURSE ---
Daughter given d/c education and prescriptions at this time. She verbalized understanding at this time.
--- NOTE | 2023-02-19 20:38 | PC.NURSE ---
Call [facility] at [phone] to cancel transport. Patient discharge with family.
== END 2023-02-19 20:38 | disposition hospice, home (50) ==
PROVIDERS: Internal Medicine; Emergency Provider Emergency Medicine; PCP Internal Medicine
DX: J18.9 Pneumonia, unspecified organism (principal); R06.00 Dyspnea, unspecified; I11.0 Hypertensive heart disease with heart failure; I50.9 Heart failure, unspecified; F03.90 Unspecified dementia, unspecified severity, without behavioral disturbance, psychotic disturbance, mood disturbance, and anxiety; Z79.51 Long term (current) use of inhaled steroids; Z79.01 Long term (current) use of anticoagulants; Z20.822 Contact with and (suspected) exposure to COVID-19
CPT/HCPCS: 36415; 36600; 71046; 80053; 80074; 82805; 83880; 84484; 85025; 85610; 85730; 87637; 93005; 94640; 96361; 96365; 96367; 96375; 99284; J0456; J0696; J2930; J7120